=== PATIENT | male | born 1985 | race Asian ===

== ENCOUNTER 2016-12-18 18:24 | Emergency (ER) | payer OTHER ==
[~2016-12-18] VITALS: Ht 180.3 cm; Wt 83.9 kg
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
== END 2016-12-18 20:07 | disposition home or self-care (01) ==
LOC: SED 18:24
DX: S60.222A Contusion of left hand, initial encounter (principal); S60.221A Contusion of right hand, initial encounter; V43.52XA Car driver injured in collision with other type car in traffic accident, initial encounter
CPT/HCPCS: 73130; 99284